=== PATIENT | male | born 1980 | race Two or more races ===

== ENCOUNTER 2017-01-23 03:57 | Emergency (ER) | payer SELFPAY ==
[~2017-01-23] VITALS: Ht 180.3 cm; Wt 81.6 kg
[2017-01-23 04:02] VITALS: BP 133/83
--- NOTE | 2017-01-23 04:07 | NUR ---
PT STATES HE DOES NOT WANT TO BE SEEN BY MD AFTER TRIAGE
== END 2017-01-23 04:10 | disposition left against medical advice (07) ==
LOC: ER 04:01
DX: Z53.21 Procedure and treatment not carried out due to patient leaving prior to being seen by health care provider (principal)
CPT/HCPCS: A4606; Z7610